=== PATIENT | male | born 1995 | race Caucasian/White ===

== ENCOUNTER 2017-04-03 23:36 | Emergency (ER) | payer SELFPAY ==
[2017-04-03 23:37] VITALS: BP 183/98; PULSE 113; RESP 18; TEMP 37; O2SAT 97; BMI 43.1
--- NOTE | 2017-04-03 23:58 | ED.VISSUMM ---
- ER Visit Summary Date of Service: 04/03/17 Chief Complaint: [] Difficulty hearing out of both ears History of Present Illness: The patient is a 21 M having difficulty hearing out of his ears for last 4 days. Left greater than right. No pain. No home treatment. No associated symptoms. No previous. Physical Examination: [] Vital signs reviewed General: Well-nourished well-developed Head: Normocephalic atraumatic Eyes: Pupils equal round and reactive to light extraocular movements intact ENT: TMs bilateral mild erythema decreased landmarks consistent with acute otitis media. No hemotympanum no trauma Neck: Nontender full range of motion Cardiovascular: Regular rate rhythm no murmurs normal S1-S2 Respiratory: No distress clear to auscultation bilaterally chest nontender Abdomen: Soft nontender nondistended normal bowel sounds no masses Back: Nontender no CVA tenderness Extremities: Nontender active range of motion ?4 extremities no trauma Skin: Normal color no trauma Neuro alert oriented cranial nerves II through XII intact normal strength sensation reflexes Test Results: [] Emergency Department Course and Treatment: [] Patient given amoxicillin will continue this for the next 7 days. Will follow-up as an outpatient. Treatment Plan: [] Disposition: [] Impression: [] Bilateral acute otitis media This note was generated with [employer] dictation software. It may contain incorrect words, spelling, and punctuation that were not noted in review of the chart prior to signing ED Disposition - Plan for ED Patient: Chief Complaint: Ear Problem Referrals: Hieu Torres MD [Primary Care Provider] -
--- NOTE | 2017-04-04 | ED.DEP ---
ED Disposition - Plan for ED Patient: Disposition: Home or Assisted Living Chief Complaint: Ear Problem Instructions: ED Otitis Media Acute Adult Prescriptions: Amoxicillin 500 mg PO TID #30 tab Referrals: Hieu Torres MD [Primary Care Provider] -
[2017-04-04] MEDS: AMOXICILLIN 500 MG CAPSULE PO (00:02)
[2017-04-04 00:05] VITALS: BP 165/80; PULSE 95; RESP 16; O2SAT 95
== END 2017-04-04 00:06 | disposition home or self-care (01) ==
PROVIDERS: Emergency Provider Emergency Medicine; Family Provider Family Medicine; PCP Family Medicine
DX: H66.93 Otitis media, unspecified, bilateral (principal); J45.909 Unspecified asthma, uncomplicated
CPT/HCPCS: 99283

== ENCOUNTER 2017-07-30 14:32 | Emergency (ER) | payer SELFPAY ==
[2017-07-30 14:33] VITALS: BP 126/85; PULSE 90; RESP 18; TEMP 37.2; O2SAT 98; BMI 40.3
--- NOTE | 2017-07-30 15:05 | ED.RN ---
DOCTOR NOTIFIED OF TRIAGE PTS RESULTS FACE TO FACE. NO ORDERS RECEIVED.
--- NOTE | 2017-07-30 15:06 | ED.RN ---
strep is positive
--- NOTE | 2017-07-30 15:27 | ED.VISSUMM ---
- ER Visit Summary Date of Service: 07/30/17 Chief Complaint: Sore throat History of Present Illness: The patient is a [address] Hieu Torres. He reports he has a sore throat began 2-3 days ago. Some aching constant pain that is sharp with eating. Is 10-10 when he swallows. Is 3 out of 10 at rest following Aleve. He denies any fever, chills, cough, or other complaints. Physical Examination: Vitals: Stable. Afebrile. General: Well-nourished and well-developed. Head: Normocephalic atraumatic. HEENT: Bilateral tonsillar enlargement and exudate. No evidence for peritonsillar abscess. No uvular shift. He does have tender anterior lymphadenopathy. Cardiovascular: Regular rate and rhythm. No murmurs. Respiratory: No respiratory distress. Clear to auscultation bilaterally. Abdominal: Soft, nontender, nondistended, normal bowel sounds. No guarding, rebound, or peritoneal signs. Back: Nontender. Extremities: Nontender, no edema. Skin: Normal color, no rash. Neurologic: Alert and oriented ?3. Cranial nerves II through XII are intact. Normal strength and sensation. Psych: Normal affect. Test Results: Rapid strep is positive. Emergency Department Course and Treatment: Patient was treated with amoxicillin and dexamethasone. He is resting comfortably. Treatment Plan: Patient will be discharged on amoxicillin. Instructed follow-up with Dr. Torres in 1 week if not improving. Return to the emergency department for any worsening symptoms. Disposition: To home in improved and stable condition. Impression: 1. Strep pharyngitis. This note was generated with [email or web address] dictation software. It may contain incorrect words, spelling, and punctuation that were not noted in review of the chart prior to signing ED Disposition - Plan for ED Patient: Chief Complaint: Sore Throat Instructions: ED Strep Pharyngitis Conf Prescriptions: Amoxicillin 500 mg PO TID #30 tablet Referrals: Hieu Torres DO [Primary Care Provider] - 1 Week if not improving
[2017-07-30] MEDS: AMOXICILLIN 500 MG CAPSULE PO (15:37)
[2017-07-30 15:40] VITALS: RESP 16
--- NOTE | 2017-07-30 15:41 | ED.RN ---
REVIEWED D/C INSTRUCTIONS, FOLLOW UP CARE, PRESCRIPTION, AND S/S THAT WOULD WARRANT A RETURN TO THE ED WITH PT. PT VERBALIZED AN UNDERSTANDING AND DENIES FURTHER QUESTIONS FOR THIS RN. PT SKIN P/W/D, RESP EVEN AND UNLABORED, PT A&O X 3, NO DISTRESS NOTED. PT AMBULATED OUT OF ED, GAIT STEADY.
== END 2017-07-30 15:42 | disposition home or self-care (01) ==
LOC: ED 15:18
PROVIDERS: Emergency Provider Emergency Medicine; Family Provider Family Medicine; PCP Family Medicine
DX: J02.0 Streptococcal pharyngitis (principal); J45.909 Unspecified asthma, uncomplicated
CPT/HCPCS: 87880; 99283

== ENCOUNTER 2017-12-01 16:55 | Emergency (ER) | payer SELFPAY ==
[2017-12-01 16:56] VITALS: BP 156/59; PULSE 141; RESP 16; TEMP 37.9; O2SAT 98
--- NOTE | 2017-12-01 17:18 | ED.VISSUMM ---
- ER Visit Summary Date of Service: 12/01/17 Chief Complaint: Cough History of Present Illness: The patient is a 22 M who woke yesterday morning with cough and congestion. Has been bringing up white sputum. He had mild to do fever at home. He does feel as if he is wheezing. Patient reports history of asthma as a child. He has not been on inhalers since his early teen years. Physical Examination: Pressure is 156/59, temperature 100.2, heart rate 141, respiratory rate 16, pulse ox 98% on room air. Patient is lying in bed no acute distress. Head and neck examination reveals moist mucous membranes. Heart is tachycardic with a heart rate of 120 the time of my exam. Lung sounds with expiratory wheezes throughout. Abdomen is soft nontender. Extremity examination reveals no calf tenderness or edema. Test Results: Two-view chest x-ray shows no focal infiltrate. Emergency Department Course and Treatment: Patient is given p.o. prednisone, Tylenol, and aerosols. On repeat examination breath sounds are significantly improved throughout. O2 sats are in the high 90s. Patient will be given prescriptions for prednisone as well as albuterol inhaler. At this time I believe his symptoms are viral in nature that triggered his asthma and antibiotics are not going to be beneficial. Treatment Plan: [] Disposition: Discharge Impression: Viral URI with bronchospasm This note was generated with [employer] dictation software. It may contain incorrect words, spelling, and punctuation that were not noted in review of the chart prior to signing ED Disposition - Plan for ED Patient: Chief Complaint: Cough Referrals: Hieu Torres DO [Primary Care Provider] -
[2017-12-01 17:19] VITALS: O2SAT 96
[2017-12-01] MEDS: Acetaminophen 500 MG Tablet 1000 MG PO (17:22)
[2017-12-01] MEDS: predniSONE 20 MG Tablet 60 MG PO (17:23)
--- NOTE | 2017-12-01 17:25 | RAD_ITS ---
STUDY: X-RAY CHEST REASON FOR EXAM: Male, 22 years old. Cough and congestion TECHNIQUE: PA and lateral views of the chest. COMPARISON: None. FINDINGS: The lungs are clear and expanded. There is no demonstrated pleural abnormality. Normal size heart. Normal mediastinum and carlos. Normal visualized pulmonary arteries. Normal visualized aortic arch and descending thoracic aorta. Normal visualized thoracic spine. Normal visualized ribs, clavicles, and shoulders. There is no demonstrated abnormality of the visualized soft tissue structures of the upper abdomen. RAD/Chest PA and Lateral IMPRESSION: Normal x-ray examination of the chest. Electronically Signed: Brenton Ojeda MD at 18:20 EDT , Service support ,
[2017-12-01] MEDS: Ipratropium/Albuterol Sulfate 3 ML AMPUL.NEB INHALATION (17:31)
[2017-12-01] MEDS: Albuterol 2.5 MG/3 ML VIAL.NEB. INHALATION ×2 (17:31→17:59)
[2017-12-01 17:33] VITALS: PULSE 129; RESP 22
--- NOTE | 2017-12-01 18:42 | ED.DEP ---
ED Disposition - Plan for ED Patient: Disposition: Home or Assisted Living Chief Complaint: Cough Instructions: ED URI Viral W Wheezing Prescriptions: Albuterol Inhaler [Ventolin Hfa] 2 puff INHALATION Q4H PRN PRN #1 inhaler PRN Reason: Wheezing Prednisone [Deltasone] 60 mg PO DAILY #15 tablet Referrals: Hieu Torres DO [Primary Care Provider] - 5-7 Days
[2017-12-01 18:52] VITALS: BP 139/67; PULSE 120; RESP 18; O2SAT 92
--- NOTE | 2017-12-03 10:13 | CM.ED ---
ED CALLBACK: Follow-up call placed to patient. No answer. Voicemail states mailbox is full and can't accept messages. Will reattempt as time allows.
== END 2017-12-01 18:55 | disposition home or self-care (01) ==
PROVIDERS: Emergency Provider Emergency Medicine; Family Provider Family Medicine; PCP Family Medicine
DX: J06.9 Acute upper respiratory infection, unspecified (principal); J45.909 Unspecified asthma, uncomplicated; Z87.891 Personal history of nicotine dependence
CPT/HCPCS: 71046; 94640; 99282